=== PATIENT | male | born 1955 | race Caucasian/White ===

== ENCOUNTER 2018-12-24 20:43 | Inpatient (IN) | payer MEDICAID ==
[2018-12-24] MEDS: morphine 4 MG/ML VIAL IV (21:02)
[2018-12-24] MEDS: ONDANSETRON 4 MG INJ IV (21:03)
[2018-12-24] MEDS: SOD CHLORIDE 0.9% 1,000 ML IV (21:03)
[2018-12-24 21:11] LABS: ADD MAN DIFF? NO
[2018-12-24] MEDS: DILTIAZEM 25 MG INJ IV (21:12)
[2018-12-24 21:13] LABS: WHITE BLOOD COUNT 7.5 10^3/ul (4.8-10.8)
[2018-12-24 21:13] LABS: BASOPHILS % 0.5 % (0.0-2.0); EOSINOPHILS # 0.3 10^3/ul (0.0-0.5); HEMATOCRIT 46.6 % (42.0-52.0); LYMPHOCYTES # 3.1 10^3/ul (0.8-2.9); LYMPHOCYTES % 41.4 % (15.0-51.0); MEAN CORPUSCULAR HEMOGLOBIN 31.1 pg (29.0-33.0); MEAN CORPUSCULAR HGB CONC 32.2 g/dl (32.0-37.0); MEAN CORPUSCULAR VOLUME 96.7 fl (82.0-101.0); MEAN PLATELET VOLUME 11.5 fl (7.4-10.4); MONOCYTE # 0.9 10^3/ul (0.3-0.9); MONOCYTES % 11.6 % (0.0-11.0); NEUTROPHIL # 3.2 10^3/ul (1.6-7.5); NEUTROPHILS % 42.2 % (39.0-77.0); PLATELET COUNT 187 10^3/UL (140-415); RED BLOOD COUNT 4.82 10^6/ul (4.70-6.10); RED CELL DISTRIBUTION WIDTH 13.7 % (11.5-14.5)
[2018-12-24 21:27] LABS: INR 1.22; PROTIME 15.5 Sec (11.9-14.9); PT RATIO 1.2
[2018-12-24 21:30] LABS: ALANINE AMINOTRANSFERASE 23 IU/L (13-69); ALBUMIN 4.1 g/dl (3.3-4.9); ALBUMIN/GLOBULIN RATIO 0.97; ALKALINE PHOSPHATASE 87 IU/L (42-121); ANION GAP 10 (5-13); ASPARTATE AMINO TRANSFERASE 41 IU/L (15-46); BILIRUBIN,INDIRECT 0.7 mg/dl (0-1.1); BILIRUBIN,TOTAL 0.7 mg/dl (0.2-1.3); BLOOD UREA NITROGEN 11 mg/dl (7-20); CALCIUM 9.6 mg/dl (8.4-10.2); CARBON DIOXIDE 27 mmol/L (21-31); CHLORIDE 104 mmol/L (97-110); CREATINE KINASE 149 IU/L (23-200); CREATININE 0.81 mg/dl (0.61-1.24); Estimated GFR > 60 mL/min (>60); GLUCOSE 97 mg/dl (70-220); LIPASE 192 U/L (23-300); POTASSIUM 3.7 mmol/L (3.5-5.1); SODIUM 141 mmol/L (135-144); TOTAL PROTEIN 8.3 g/dl (6.1-8.1)
[2018-12-24] MEDS: DILTIAZEM-D5W 125MG/125ML DRIP 125 ML IV ×2 (21:31→22:20)
[2018-12-24 21:38] LABS: CK INDEX 2.1
[2018-12-24 21:40] LABS: CK-MB 3.09 ng/ml (0.0-2.4)
[2018-12-24 21:43] LABS: TROPONIN-I < 0.012 ng/ml (0.000-0.120)
[2018-12-24 21:44] LABS: B-TYPE NATRIURETIC PEPTIDE 752 PG/ML (0-125)
[2018-12-24 21:59] LABS: PARTIAL THROMBOPLASTIN TIME 33.3 Sec (23.0-35.0)
[2018-12-24] MEDS ORDERED: ACETAMINOPHEN 325 MG TAB PO ×2 (22:30→23:30)
[2018-12-24] MEDS ORDERED: ONDANSETRON 4 MG INJ IV (22:30)
[2018-12-24] MEDS: LORAZEPAM 2 MG INJ IV (23:04)
[2018-12-24] MEDS: MULTIVITAMINS 10 ML, THIAMINE 100 MG, FOLIC ACID 1 MG, MAGNESIUM SULFATE 2 GM in SOD CH... IV (23:29)
[2018-12-24] MEDS ORDERED: LORAZEPAM 2 MG INJ IV (23:30)
[2018-12-24] MEDS ORDERED: NITROGLYCERIN (SL) 0.4 MG TAB SL (23:30)
[2018-12-24] MEDS ORDERED: NACL 0.9% 3 ML SYG IV (23:30)
[2018-12-24] MEDS ORDERED: DOCUSATE SODIUM 100 MG CAP PO (23:30)
[2018-12-24] MEDS ORDERED: ENOXAPARIN 100 MG/ML SYG SC (23:30)
[2018-12-24] MEDS: ASPIRIN 81 MG TAB PO (23:31)
[2018-12-25 00:14] LABS: CREATINE KINASE 131 IU/L (23-200); TROPONIN-I 0.019 ng/ml (0.000-0.120)
[2018-12-25 00:16] LABS: ETHANOL < 10.0 mg/dl (0-0)
[2018-12-25] MEDS: THIAMINE 200 MG INJ IM (01:13)
[2018-12-25] MEDS ORDERED: DILTIAZEM-D5W 125MG/125ML DRIP 125 ML IV (03:30)
[2018-12-25 05:19] LABS: ADD MAN DIFF? NO
[2018-12-25] MEDS: DILTIAZEM-D5W 125MG/125ML DRIP 125 ML IV (05:22)
[2018-12-25 05:29] LABS: HEMOGLOBIN A1C 5.6 % (0-5.9)
[2018-12-25 05:31] LABS: BASOPHILS % 0.5 % (0.0-2.0); EOSINOPHILS # 0.2 10^3/ul (0.0-0.5); EOSINOPHILS % 3.8 % (0.0-7.0); HEMATOCRIT 42.5 % (42.0-52.0); HEMOGLOBIN 13.6 g/dl (14.0-18.0); LYMPHOCYTES # 1.9 10^3/ul (0.8-2.9); LYMPHOCYTES % 31.5 % (15.0-51.0); MEAN CORPUSCULAR HEMOGLOBIN 31.6 pg (29.0-33.0); MEAN CORPUSCULAR VOLUME 98.8 fl (82.0-101.0); MEAN PLATELET VOLUME 11.9 fl (7.4-10.4); MONOCYTE # 0.8 10^3/ul (0.3-0.9); NEUTROPHIL # 3.1 10^3/ul (1.6-7.5); PLATELET COUNT 170 10^3/UL (140-415); RED CELL DISTRIBUTION WIDTH 14.1 % (11.5-14.5)
[2018-12-25 06:08] LABS: CREATINE KINASE 111 IU/L (23-200)
[2018-12-25 06:15] LABS: ALANINE AMINOTRANSFERASE 33 IU/L (13-69); ALBUMIN 3.6 g/dl (3.3-4.9); ALBUMIN/GLOBULIN RATIO 1.02; ALKALINE PHOSPHATASE 63 IU/L (42-121); ANION GAP 8 (5-13); ASPARTATE AMINO TRANSFERASE 34 IU/L (15-46); BILIRUBIN,INDIRECT 0.5 mg/dl (0-1.1); BILIRUBIN,TOTAL 0.5 mg/dl (0.2-1.3); BLOOD UREA NITROGEN 10 mg/dl (7-20); CALCIUM 8.6 mg/dl (8.4-10.2); CARBON DIOXIDE 29 mmol/L (21-31); CHLORIDE 105 mmol/L (97-110); CHOL/HDL RATIO 4.8 RATIO; CHOLESTEROL 131 mg/dl (100-200); CREATININE 0.75 mg/dl (0.61-1.24); Estimated GFR > 60 mL/min (>60); GLUCOSE 101 mg/dl (70-220); HDL CHOLESTEROL 27 mg/dl (30-78); LDL CHOLESTEROL,CALCULATED 91 mg/dl; MAGNESIUM 2.5 mg/dl (1.7-2.5); POTASSIUM 4.3 mmol/L (3.5-5.1); SODIUM 142 mmol/L (135-144); TOTAL PROTEIN 7.1 g/dl (6.1-8.1); TRIGLYCERIDES 63 mg/dl (0-149)
[2018-12-25 06:21] LABS: CK INDEX 2.2
[2018-12-25 06:28] LABS: FREE T3 4.08 pg/ml (2.77-5.27)
[2018-12-25 06:31] LABS: FREE T4 (FREE THYROXINE) 1.17 ng/dl (0.78-2.44)
[2018-12-25] MEDS: ASPIRIN 81 MG TAB PO (09:18)
[2018-12-25] MEDS: FISH OIL 1,000 MG CAP PO ×2 (11:00→21:02)
[2018-12-25] MEDS: METOPROLOL 25 MG TAB PO (12:27)
[2018-12-25] MEDS: DILTIAZEM (CD) 120 MG CAP PO (16:03)
[2018-12-25] MEDS: CHLORDIAZEPOXIDE 25 MG CAP PO (21:02)
[2018-12-25] MEDS: ENOXAPARIN 100 MG/ML SYG SC (21:04)
[2018-12-25] MEDS: DOCUSATE SODIUM 100 MG CAP PO (23:49)
[2018-12-26 06:32] LABS: ADD MAN DIFF? NO
[2018-12-26 06:41] LABS: WHITE BLOOD COUNT 7.3 10^3/ul (4.8-10.8)
[2018-12-26 06:41] LABS: BASOPHILS % 0.4 % (0.0-2.0); EOSINOPHILS # 0.3 10^3/ul (0.0-0.5); EOSINOPHILS % 4.6 % (0.0-7.0); HEMATOCRIT 45.2 % (42.0-52.0); HEMOGLOBIN 13.9 g/dl (14.0-18.0); MEAN CORPUSCULAR HEMOGLOBIN 30.7 pg (29.0-33.0); MEAN CORPUSCULAR HGB CONC 30.8 g/dl (32.0-37.0); MEAN CORPUSCULAR VOLUME 99.8 fl (82.0-101.0); MEAN PLATELET VOLUME 11.7 fl (7.4-10.4); MONOCYTE # 0.7 10^3/ul (0.3-0.9); MONOCYTES % 9.9 % (0.0-11.0); NEUTROPHIL # 4.1 10^3/ul (1.6-7.5); PLATELET COUNT 177 10^3/UL (140-415); RED BLOOD COUNT 4.53 10^6/ul (4.70-6.10); RED CELL DISTRIBUTION WIDTH 14.1 % (11.5-14.5)
[2018-12-26 07:09] LABS: ANION GAP 7 (5-13); BLOOD UREA NITROGEN 14 mg/dl (7-20); CALCIUM 8.9 mg/dl (8.4-10.2); CARBON DIOXIDE 29 mmol/L (21-31); CHLORIDE 106 mmol/L (97-110); Estimated GFR > 60 mL/min (>60); GLUCOSE 89 mg/dl (70-220); MAGNESIUM 2.1 mg/dl (1.7-2.5); POTASSIUM 4.1 mmol/L (3.5-5.1); SODIUM 142 mmol/L (135-144)
[2018-12-26] MEDS: ASPIRIN 81 MG TAB PO (09:00)
[2018-12-26] MEDS: FISH OIL 1,000 MG CAP PO ×2 (09:00→21:55)
[2018-12-26] MEDS: DOCUSATE SODIUM 100 MG CAP PO (09:00)
[2018-12-26] MEDS: DILTIAZEM (CD) 120 MG CAP PO ×2 (09:01→13:14)
[2018-12-26] MEDS: ENOXAPARIN 100 MG/ML SYG SC ×2 (09:04→22:06)
[2018-12-26] MEDS: CHLORDIAZEPOXIDE 25 MG CAP PO ×3 (09:07→21:55)
[2018-12-26 10:23] LABS: AMPHETAMINE/METHAMPHETAMINE Negative (NEGATIVE); BARBITURATES Negative (NEGATIVE); BENZODIAZEPINES Negative (NEGATIVE); CANNABINOIDS Negative (NEGATIVE); COCAINE Negative (NEGATIVE); OPIATES Positive (NEGATIVE)
[2018-12-26] MEDS: THIAMINE 200 MG INJ IM (13:14)
[2018-12-26] MEDS: FUROSEMIDE 20 MG INJ IV ×2 (15:26→17:22)
[2018-12-27] MEDS: DOCUSATE SODIUM 100 MG CAP PO ×3 (00:19→20:43)
[2018-12-27] MEDS: FUROSEMIDE 20 MG INJ IV ×2 (00:19→05:51)
[2018-12-27 05:14] LABS: ADD MAN DIFF? NO
[2018-12-27 05:18] LABS: BASOPHILS % 0.4 % (0.0-2.0); EOSINOPHILS # 0.4 10^3/ul (0.0-0.5); EOSINOPHILS % 5.6 % (0.0-7.0); HEMATOCRIT 43.7 % (42.0-52.0); HEMOGLOBIN 13.7 g/dl (14.0-18.0); LYMPHOCYTES # 2.2 10^3/ul (0.8-2.9); LYMPHOCYTES % 31.8 % (15.0-51.0); MEAN CORPUSCULAR HGB CONC 31.4 g/dl (32.0-37.0); MEAN CORPUSCULAR VOLUME 98.9 fl (82.0-101.0); MEAN PLATELET VOLUME 11.8 fl (7.4-10.4); MONOCYTE # 0.8 10^3/ul (0.3-0.9); MONOCYTES % 11.6 % (0.0-11.0); NEUTROPHIL # 3.5 10^3/ul (1.6-7.5); NEUTROPHILS % 50.5 % (39.0-77.0); PLATELET COUNT 181 10^3/UL (140-415); RED BLOOD COUNT 4.42 10^6/ul (4.70-6.10); RED CELL DISTRIBUTION WIDTH 13.9 % (11.5-14.5)
[2018-12-27 05:18] LABS: WHITE BLOOD COUNT 6.8 10^3/ul (4.8-10.8)
[2018-12-27 06:04] LABS: ANION GAP 9 (5-13); BLOOD UREA NITROGEN 13 mg/dl (7-20); CALCIUM 8.9 mg/dl (8.4-10.2); CARBON DIOXIDE 34 mmol/L (21-31); CHLORIDE 99 mmol/L (97-110); CREATININE 0.84 mg/dl (0.61-1.24); Estimated GFR > 60 mL/min (>60); GLUCOSE 90 mg/dl (70-220); POTASSIUM 4.2 mmol/L (3.5-5.1); SODIUM 142 mmol/L (135-144)
[2018-12-27] MEDS: ASPIRIN 81 MG TAB PO (08:52)
[2018-12-27] MEDS: THIAMINE 200 MG INJ IM (08:52)
[2018-12-27] MEDS: BISACODYL (EC) 5 MG TAB PO (08:52)
[2018-12-27] MEDS: CHLORDIAZEPOXIDE 25 MG CAP PO ×2 (08:52→12:25)
[2018-12-27] MEDS: FISH OIL 1,000 MG CAP PO ×2 (08:52→20:43)
[2018-12-27] MEDS: DILTIAZEM (CD) 120 MG CAP PO (08:53)
[2018-12-27] MEDS: ENOXAPARIN 100 MG/ML SYG SC ×2 (09:02→20:50)
[2018-12-27] MEDS: THIAMINE 100 MG TAB PO (10:08)
[2018-12-27] MEDS: FLUTICASONE 0.05% 16 GM NAS SPRAY NASAL (20:43)
[2018-12-28 05:30] LABS: ADD MAN DIFF? NO
[2018-12-28 05:46] LABS: BASOPHILS % 0.7 % (0.0-2.0); EOSINOPHILS # 0.4 10^3/ul (0.0-0.5); EOSINOPHILS % 6.6 % (0.0-7.0); HEMATOCRIT 46.1 % (42.0-52.0); HEMOGLOBIN 14.5 g/dl (14.0-18.0); LYMPHOCYTES % 33.2 % (15.0-51.0); MEAN CORPUSCULAR HEMOGLOBIN 30.9 pg (29.0-33.0); MEAN CORPUSCULAR HGB CONC 31.5 g/dl (32.0-37.0); MEAN CORPUSCULAR VOLUME 98.3 fl (82.0-101.0); MEAN PLATELET VOLUME 11.7 fl (7.4-10.4); MONOCYTE # 0.7 10^3/ul (0.3-0.9); MONOCYTES % 12.4 % (0.0-11.0); NEUTROPHIL # 2.8 10^3/ul (1.6-7.5); NEUTROPHILS % 46.8 % (39.0-77.0); PLATELET COUNT 192 10^3/UL (140-415); RED BLOOD COUNT 4.69 10^6/ul (4.70-6.10); RED CELL DISTRIBUTION WIDTH 13.6 % (11.5-14.5)
[2018-12-28 05:46] LABS: WHITE BLOOD COUNT 5.9 10^3/ul (4.8-10.8)
[2018-12-28 06:14] LABS: ANION GAP 4 (5-13); BLOOD UREA NITROGEN 8 mg/dl (7-20); CALCIUM 9.2 mg/dl (8.4-10.2); CARBON DIOXIDE 38 mmol/L (21-31); CHLORIDE 100 mmol/L (97-110); CREATININE 0.71 mg/dl (0.61-1.24); Estimated GFR > 60 mL/min (>60); GLUCOSE 95 mg/dl (70-220); SODIUM 142 mmol/L (135-144)
[2018-12-28 06:21] LABS: POTASSIUM 3.9 mmol/L (3.5-5.1)
[2018-12-28] MEDS: FISH OIL 1,000 MG CAP PO ×2 (09:29→20:19)
[2018-12-28] MEDS: ASPIRIN 81 MG TAB PO (09:29)
[2018-12-28] MEDS: DILTIAZEM (CD) 120 MG CAP PO (09:30)
[2018-12-28] MEDS: THIAMINE 100 MG TAB PO (09:30)
[2018-12-28] MEDS: ENOXAPARIN 100 MG/ML SYG SC (09:43)
[2018-12-28] MEDS: DOCUSATE SODIUM 100 MG CAP PO ×2 (13:41→20:19)
[2018-12-28] MEDS: TAMSULOSIN (SR) 0.4 MG CAP PO (20:19)
[2018-12-28] MEDS: BISACODYL (EC) 5 MG TAB PO (20:21)
[2018-12-28] MEDS: FLUTICASONE 0.05% 16 GM NAS SPRAY NASAL (20:31)
[2018-12-29 05:38] LABS: ADD MAN DIFF? NO
[2018-12-29 05:43] LABS: WHITE BLOOD COUNT 4.8 10^3/ul (4.8-10.8)
[2018-12-29 05:43] LABS: BASOPHILS % 0.6 % (0.0-2.0); EOSINOPHILS # 0.5 10^3/ul (0.0-0.5); EOSINOPHILS % 9.6 % (0.0-7.0); HEMATOCRIT 45.1 % (42.0-52.0); HEMOGLOBIN 14.2 g/dl (14.0-18.0); LYMPHOCYTES # 1.4 10^3/ul (0.8-2.9); LYMPHOCYTES % 29.1 % (15.0-51.0); MEAN CORPUSCULAR HEMOGLOBIN 30.9 pg (29.0-33.0); MEAN CORPUSCULAR HGB CONC 31.5 g/dl (32.0-37.0); MEAN CORPUSCULAR VOLUME 98.3 fl (82.0-101.0); MEAN PLATELET VOLUME 11.4 fl (7.4-10.4); MONOCYTE # 0.7 10^3/ul (0.3-0.9); MONOCYTES % 15.4 % (0.0-11.0); NEUTROPHIL # 2.2 10^3/ul (1.6-7.5); NEUTROPHILS % 45.1 % (39.0-77.0); PLATELET COUNT 196 10^3/UL (140-415); RED BLOOD COUNT 4.59 10^6/ul (4.70-6.10); RED CELL DISTRIBUTION WIDTH 13.3 % (11.5-14.5)
[2018-12-29 06:37] LABS: ANION GAP 5 (5-13); BLOOD UREA NITROGEN 11 mg/dl (7-20); CARBON DIOXIDE 38 mmol/L (21-31); CHLORIDE 101 mmol/L (97-110); CREATININE 0.59 mg/dl (0.61-1.24); Estimated GFR > 60 mL/min (>60); GLUCOSE 108 mg/dl (70-220); SODIUM 144 mmol/L (135-144)
[2018-12-29] MEDS: THIAMINE 100 MG TAB PO (09:02)
[2018-12-29] MEDS: ASPIRIN 81 MG TAB PO (09:02)
[2018-12-29] MEDS: FISH OIL 1,000 MG CAP PO ×2 (09:02→20:35)
[2018-12-29] MEDS: DILTIAZEM (CD) 120 MG CAP PO ×2 (09:02→20:36)
[2018-12-29] MEDS: ENOXAPARIN 40 MG/0.4 ML SYG SC (09:04)
[2018-12-29] MEDS: BISACODYL (EC) 5 MG TAB PO (09:33)
[2018-12-29] MEDS: DOCUSATE SODIUM 100 MG CAP PO ×2 (12:02→20:35)
[2018-12-29] MEDS: DILTIAZEM 25 MG INJ IV (12:03)
[2018-12-29] MEDS: SOD CHLORIDE 0.9% 500 ML IV (18:26)
[2018-12-29] MEDS: FLUTICASONE 0.05% 16 GM NAS SPRAY NASAL (20:35)
[2018-12-29] MEDS: TAMSULOSIN (SR) 0.4 MG CAP PO (20:36)
[2018-12-30 06:29] LABS: ANION GAP 4 (5-13); BLOOD UREA NITROGEN 12 mg/dl (7-20); CARBON DIOXIDE 33 mmol/L (21-31); CHLORIDE 106 mmol/L (97-110); CREATININE 0.58 mg/dl (0.61-1.24); Estimated GFR > 60 mL/min (>60); GLUCOSE 93 mg/dl (70-220); POTASSIUM 3.9 mmol/L (3.5-5.1); SODIUM 143 mmol/L (135-144)
[2018-12-30] MEDS: THIAMINE 100 MG TAB PO (08:21)
[2018-12-30] MEDS: ASPIRIN 81 MG TAB PO (08:21)
[2018-12-30] MEDS: FISH OIL 1,000 MG CAP PO ×2 (08:21→20:58)
[2018-12-30] MEDS: DILTIAZEM (CD) 120 MG CAP PO ×2 (08:22→12:26)
[2018-12-30] MEDS: ENOXAPARIN 40 MG/0.4 ML SYG SC (08:26)
[2018-12-30] MEDS: DOCUSATE SODIUM 100 MG CAP PO ×2 (11:39→23:30)
[2018-12-30] MEDS: TAMSULOSIN (SR) 0.4 MG CAP PO (20:58)
[2018-12-30] MEDS: DILTIAZEM (CD) 240 MG CAP PO (20:59)
[2018-12-30] MEDS: FLUTICASONE 0.05% 16 GM NAS SPRAY NASAL (20:59)
[2018-12-31 06:43] LABS: ANION GAP 5 (5-13); BLOOD UREA NITROGEN 12 mg/dl (7-20); CALCIUM 9.2 mg/dl (8.4-10.2); CARBON DIOXIDE 35 mmol/L (21-31); CHLORIDE 103 mmol/L (97-110); CREATININE 0.62 mg/dl (0.61-1.24); Estimated GFR > 60 mL/min (>60); GLUCOSE 93 mg/dl (70-220); MAGNESIUM 1.9 mg/dl (1.7-2.5); POTASSIUM 3.7 mmol/L (3.5-5.1); SODIUM 143 mmol/L (135-144)
[2018-12-31] MEDS: ASPIRIN 81 MG TAB PO (08:17)
[2018-12-31] MEDS: THIAMINE 100 MG TAB PO (08:17)
[2018-12-31] MEDS: FISH OIL 1,000 MG CAP PO (08:17)
[2018-12-31] MEDS: ENOXAPARIN 40 MG/0.4 ML SYG SC (08:23)
[2018-12-31] MEDS: DILTIAZEM (CD) 240 MG CAP PO (08:28)
[2018-12-31] MEDS: DOCUSATE SODIUM 100 MG CAP PO (11:30)
== END 2018-12-31 13:02 | disposition home or self-care (01) | DRG 308 ==
LOC: 6WM 22:22 → E/R 20:43
DX: I48.91 Unspecified atrial fibrillation (principal); I50.31 Acute diastolic (congestive) heart failure; K40.90 Unilateral inguinal hernia, without obstruction or gangrene, not specified as recurrent; F10.10 Alcohol abuse, uncomplicated; K80.20 Calculus of gallbladder without cholecystitis without obstruction; E66.9 Obesity, unspecified; Z68.36 Body mass index [BMI] 36.0-36.9, adult; F17.200 Nicotine dependence, unspecified, uncomplicated
CPT/HCPCS: 71045; 74177; 80048; 80053; 80061; 80307; 82550; 82553; 83036; 83690; 83735; 83880; 84439; 84443; 84481; 84484; 85025; 85610; 85730; 93005; 93306; 96374; 96375; 99291-25